=== PATIENT | male | born 1990 | race Caucasian/White ===

== ENCOUNTER 2024-02-03 09:43 | Emergency (ER) | payer OTHER, SELFPAY ==
--- NOTE | ~2024-02-03 | XR_ITS ---
EXAMINATION: XR chest 1V portable DATE: 02/03/2024 10:21 INDICATION: Allergic reaction and edema TECHNIQUE: frontal view of the chest was obtained. COMPARISON: None FINDINGS: Opacities at the left lower lung zone silhouetting the left hemidiaphragm. Cardiomegaly with pulmonar y vascular congestion but without marilynn pulmonary edema. No or pneumothorax right-sided pleural effus ion. IMPRESSION: 1. Cardiomegaly with pulmonary vascular congestion but without marilynn pulmonary edema. 2. Opacities at the left lower lung zone which could represent atelectasis, pneumonia, small left ple ural effusion or some combination thereof. Reviewed, dictated and finalized at location A. IMPRESSION: 1. Cardiomegaly with pulmonary vascular congestion but without marilynn pulmonary edema. 2. Opacities at the left lower lung zone which could represent atelectasis, pne umonia, small left pleural effusion or some combination thereof.
[2024-02-03 10:00] VITALS: BP 149/113; PULSE 102; RESP 18; O2SAT 100
--- NOTE | 2024-02-03 10:02 | ECG_ITS ---
Test Date: 2024-02-03 09:56:54 Measurements Intervals [place] Rate: 97 P: 64 [place]: 140 QRS: 108 QRSD: 98 T: -12 QT: 325 QTc: 414 Interpretive Statements SINUS RHYTHM MARKED RIGHT AXIS DEVIATION [QRS AXIS > 100] LOW QRS VOLTAGE IN PRECORDIAL LEADS [QRS DEFLECTION < 1.0 mV IN CHEST LEADS] INCOMPLETE RIGHT BUNDLE BRANCH BLOCK [90+ ms QRS DURATION, TERMINAL R IN V1/V2, 40+ ms S IN I/aVL/V4/V5/V6] NONSPECIFIC ST SEGMENT ABNORMALITY ABNORMAL ECG No previous ECG available for comparison Electronically Signed On 02-04-2024 07:11:25 CDT by Primo Mcnally M.D.
--- NOTE | 2024-02-03 10:02 | ED.ALLEREA ---
HPI - Allergic Reaction General Chief complaint: Allergic Reaction Stated complaint: facial swelling-allergic reaction Time Seen by Provider: 02/03/24 10:01 Source: patient, EMS and police History of Present Illness HPI narrative: Patient presents with concern for allergic reaction. He is on an unknown antibiotic. He presents from custodial /residential. He has been having lower extremity edema and scrotal swelling. He was also having concerns for dental infection And believes this is why the antibiotic was prescribed. patient denies being on an HUDSON-inhibitor when provided with a list of multiple names of such medications. Related Data Allergies Allergy/AdvReac Type Severity Reaction Status Date / Time clindamycin Allergy Intermediate edema Uncoded 02/03/24 10:14 [facility] Past Medical History Medical History (Updated 02/04/24 @ 00:01 by Dena Peng) Dental infection Scrotal edema Social History Social History (Updated 02/03/24 @ 10:34 by Gabby Lawler MD) Living arrangements: incarcerated Exam Narrative: GENERAL: Well-appearing, well-nourished, and in no acute distress. HEAD: Normocephalic, atraumatic. EYES: Non injected, non icteric. significant bilateral periorbital swelling; eyes closed at baseline but able to open both. ENT: Nares clear, no rhinorrhea or epistaxis. Difficult to fully evaluate posterior oropharynx but otherwise without edema or angioedema. Uvula midline. Poor dentition. Small lesion on tongue. NECK: Supple. CHEST: Speaking in full sentences. No respiratory distress. lungs clear to auscultation bilaterally without appreciable bronchospasm or wheezes. HEART: Regular rate and rhythm. ABDOMEN: Soft, Abdominal edema and erythema but without warmth or tenderness. EXTREMITIES: Normal range of motion. 3+ bilateral pitting lower extremity edema : scant scrotal edema; normal male uncircumcised genitalia. SKIN: Warm, dry. Diffuse Rash but without urticaria. . NEURO: No focal deficits. Alert and oriented x3. PSYCH: Normal mood and affect. Course Vital Signs Vital signs: Vital Signs Pulse Rate 102 H 02/03/24 10:00 Respiratory Rate 18 02/03/24 10:00 Blood Pressure 149/113 H 02/03/24 10:00 Pulse Oximetry 100 02/03/24 10:00 Oxygen Delivery Room Air 02/03/24 10:00 Temperature 98.3 F 02/03/24 13:04 Pulse Rate 95 02/03/24 13:04 Respiratory Rate 19 02/03/24 13:04 Blood Pressure 141/89 H 02/03/24 13:04 Pulse Oximetry 100 02/03/24 13:04 Oxygen Delivery Room Air 02/03/24 10:06 MDM - Allergic Reaction MDM Narrative Medical decision making narrative: Patient presents with concern for allergic reaction. He has periorbital edema and a diffuse rash. patient has been taking an antibiotic, believed to be for a dental infection. It is determined that this was clindamycin. In the emergency department he is afebrile with signs that show mild tachycardia and hypertension the narrow pulse pressure. Patient is otherwise not tachypneic is normoxic. Social determinant of health affecting care: patient currently incarcerated Patient given additional diphenhydramine Clindamycin is added to the patient's allergy list. There are also minimal ST depressions patient's EKG with no prior for comparison. Will resuscitate/ stabilize patient and re-evaluate. patient is reassessed. His swelling has started to improve and his eyes are now open although he does still have some periorbital edema. Patient was educated about anaphylaxis and prescribed 2 epinephrine autoinjector time of discharge. Patient also provided with outpatient steroid (40mg/day 5 days; no taper required) and Rx for diphenhydramine. COnfirmed multiple times that if medications are prescribed [facility]. Given it appears he has a degree of heart failure /edema, will include a daily dose of Lasix and I strongly encouraged follow up while incarcerated
[2024-02-03 10:12] VITALS: TEMP 36.6
[2024-02-03] MEDS: diphenhydrAMINE HCl INJ 50 MG/ML VIAL 25 MG IV PUSH (10:13)
[2024-02-03] MEDS: predniSONE 20 MG TABLET 60 MG PO (10:13)
[2024-02-03] MEDS: SODIUM CHLORIDE 0.9% IV 1,000 ML 999 ML IV CONT (10:14)
[2024-02-03 10:28] LABS: Basophils Percent Auto 0.2 % (0.2-1.2); Eosinophils Absolute Auto 0.1 K/mm3 (0-0.3); Hematocrit 39.9 % (42.0-52.0); Hemoglobin 12.9 g/dL (14.0-18.0); Immature Granulocyte Absolute 0.01 K/mm3 (0.00-0.031); Immature Granulocyte Percent A 0.2 % (0-0.5); Lymphocytes Absolute Auto 0.99 K/mm3 (0.9-3.2); Lymphocytes Percent Auto 19.3 % (18.3-44.2); Mean Corpuscular HGB Conc 32.3 g/dl (32-36); Mean Corpuscular Hemoglobin 27.2 pg (26-34); Mean Corpuscular Volume 84.2 fl (80-100); Mean Platelet Volume 11.7 fl (7.4-10.4); Monocytes Absolute Auto 0.6 K/mm3 (0.1-0.6); Monocytes Percent Auto 10.9 % (2.6-8.5); Neutrophils Absolute Auto 3.5 K/mm3 (1.3-6.7); Neutrophils Percent Auto 68.4 % (45.5-73.1); Platelet Count Result 183 k/mm3 (150-375); Red Blood Count 4.74 M/mm3 (4.6-6.20); Red Cell Distribution Width 17.2 % (11.5-14.5); White Blood Count 5.1 K/mm3 (4.5-10.0)
[2024-02-03 10:37] LABS: Alanine Aminotransferase 30 U/L (6-50); Albumin Level 3.4 g/dL (3.5-5.1); Alkaline Phosphatase 83 U/L (38-126); Anion Gap 7 mmol/L (4-12); Aspartate Amino Transferase 39 U/L (17-59); Bilirubin,Total 1.1 mg/dL (0.2-1.3); Blood Urea Nitrogen 19 mg/dL (9-20); Calcium 8.7 mg/dL (8.4-10.2); Carbon Dioxide 24 mmol/L (22-30); Chloride 108 mmol/L (98-107); Estimated CRCL calculation 124 ml/min; Estimated Glomerular Filt Rate > 60; Glucose 99 mg/dL (65-110); Potassium 4.2 mmol/L (3.4-5.0); Sodium 139 mmol/L (137-145)
[2024-02-03 10:46] LABS: NT Pro B Type Natriuretic Pept 2540 pg/mL (19.9-100)
[2024-02-03 11:17] VITALS: BP 126/92; PULSE 92; RESP 15; O2SAT 100
[2024-02-03] MEDS: FUROSEMIDE INJ 40 MG/4 ML VIAL IV PUSH (11:35)
--- NOTE | 2024-02-03 11:35 | ECG_ITS ---
Test Date: 2024-02-03 11:51:46 Measurements Intervals [place] Rate: 70 P: 37 [place]: 152 QRS: 108 QRSD: 89 T: -24 QT: 354 QTc: 382 Interpretive Statements SINUS RHYTHM WITH SINUS ARRHYTHMIA POSSIBLE LEFT ATRIAL ENLARGEMENT [-0.1mV P WAVE IN V1/V2] MARKED RIGHT AXIS DEVIATION [QRS AXIS > 100] INCOMPLETE RIGHT BUNDLE BRANCH BLOCK LOW QRS VOLTAGE ABNORMAL ECG COMPARED TO ELECTROCARDIOGRAM EARLIER TODAY, NO DIFFERENCE Electronically Signed On 02-04-2024 07:14:10 CDT by Primo Mcnally M.D.
[2024-02-03 11:47] VITALS: BP 134/107; PULSE 70; RESP 13; O2SAT 100
[2024-02-03 12:08] LABS: Appearance Urine Clear (Clear); Bilirubin Urine Negative (Negative); Blood Urine Negative (Negative); Color Urine Yellow (Yellow); Glucose Urine UA Negative (Negative); Ketones Urine Negative (Negative); Leukocyte Esterase Ur Negative LEU/UL (Negative); Nitrate Urine Negative (Negative); Protein Urine Negative (Negative); Specific Grav Ur 1.006 (1.001-1.035); Urobilinogen Urine 0.2 mg/dL (<2.0)
[2024-02-03 12:12] LABS: Add Urine Microscopic? NO
[2024-02-03 13:04] VITALS: BP 141/89; PULSE 95; RESP 19; TEMP 36.8; O2SAT 100
== END 2024-02-03 13:05 ==
PROVIDERS: Emergency Provider Student in an Organized Health Care Education/Training Program
DX: T78.3XXA Angioneurotic edema, initial encounter (principal); T36.8X5A Adverse effect of other systemic antibiotics, initial encounter; D64.9 Anemia, unspecified; I45.10 Unspecified right bundle-branch block; I51.7 Cardiomegaly
CPT/HCPCS: 36415; 71045; 80053; 81003; 83880; 85025; 93005; 96361; 96374; 96375; 99284; J1200; J1940; J7030; J7512

== ENCOUNTER 2025-08-11 23:13 | Emergency (ER) | payer OTHER, SELFPAY ==
--- NOTE | ~2025-08-11 | US_ITS ---
EXAMINATION: US venous doppler LE RT DATE: 08/12/2025 07:42 INDICATION: Right lower limb pain and swelling. TECHNIQUE: Grayscale ultrasound images without and with compression and Doppler ultrasound images of the right lower extremity veins were obtained. COMPARISON: None. FINDINGS: The visualized portions of right common femoral vein, profunda (deep) femoral vein, femoral vein, popliteal vein, peroneal veins, posterior tibial veins, and greater saphenous vein outflow are patent. IMPRESSION: 1. No deep venous thrombosis. Reviewed, dictated and finalized at location E. OPERATIONS MANAGER
[2025-08-11 23:25] VITALS: BP 135/84; PULSE 96; RESP 18; TEMP 36.9; O2SAT 100
[2025-08-12 01:16] VITALS: BP 127/90; PULSE 99; RESP 20; TEMP 36.4; O2SAT 96
--- NOTE | 2025-08-12 04:16 | ED.GENADULT ---
HPI - General Adult General Chief complaint: Unspecified Stated complaint: leg swelling Time Seen by Provider: 08/12/25 04:06 History of Present Illness HPI narrative: 34-year-old male with no known pertinent past medical history presenting to the emergency department with lower extremity swelling on the right lower extremity for about a week. Patient states that he went to another hospital and they were going to give him Lasix but did not end up getting this medication. States he thinks he may have been told he had heart failure at one point but is not sure of this. For last week he has been having right lower extremity pain and swelling with fluid retention and redness. Denies any traumatic injuries. No recent surgeries. No mobilization for prolonged periods of time or any history of thromboembolic disease/ DVT. Denies any other complaints at this time. Was otherwise in his normal state of health. Related Data Allergies Allergy/AdvReac Type Severity Reaction Status Date / Time No Known Allergies Allergy Verified 08/11/25 23:28 Review of Systems Review of Systems: As reviewed above in HPI All systems reviewed & are unremarkable except as noted in HPI and below PMFSH Past Medical History Medical History Dental infection Scrotal edema Social History Social History Living arrangements: incarcerated Exam Narrative: GENERAL: [Well-appearing, well-nourished, and in no acute distress.] HEAD: [Normocephalic, atraumatic.] EYES: [PERRLA and EOMI.] ENT: Nares clear, no rhinorrhea or epistaxis. Mucous membranes moist. NECK: Supple. CHEST: [Clear to auscultation. No respiratory distress.] HEART: [Regular rate and rhythm]. No murmur heard. [Normal peripheral pulses.] ABDOMEN: [Soft, nondistended], [nontender], [No rigidity or guarding] EXTREMITIES: Normal range of motion. Ambulatory without difficulty. Right lower extremity with circumferential swelling from the knee down to the ankle with redness and pitting edema. Some dry skin on the anterior surface but no deformity. Palpable pulses throughout. Able to plantar and dorsiflex and ambulate without difficulty. Pain with palpation. Contralateral lower extremity with no findings of concern. SKIN: Warm, dry, no rash. NEURO: [No focal deficits]. Alert and oriented [x3.] PSYCH: [Normal mood and affect.] Course Vital Signs Vital signs: Vital Signs Temperature 36.9 C 08/11/25 23:25 Pulse Rate 96 08/11/25 23:25 Respiratory Rate 18 08/11/25 23:25 Blood Pressure 135/84 08/11/25 23:25 Pulse Oximetry 100 08/11/25 23:25 Oxygen Delivery Room Air 08/11/25 23:25 Temperature 36.4 C 08/12/25 01:16 Pulse Rate 103 H 08/12/25 07:30 Respiratory Rate 16 08/12/25 07:30 Blood Pressure 127/108 H 08/12/25 07:30 Pulse Oximetry 93 08/12/25 07:30 Oxygen Delivery Room Air 08/11/25 23:25 MDM MDM Narrative Medical decision making narrative: 34-year-old male with no known pertinent past medical history presenting to the emergency department with lower extremity swelling on the right lower extremity for about a week. Patient states that he went to another hospital and they were going to give him Lasix but did not end up getting this medication. States he thinks he may have been told he had heart failure at one point but is not sure of this. For last week he has been having right lower extremity pain and swelling with fluid retention and redness. Denies any traumatic injuries. No recent surgeries. No mobilization for prolonged periods of time or any history of thromboembolic disease/ DVT. Denies any other complaints at this time. Was otherwise in his normal state of health. Normal range of motion. Ambulatory without difficulty. Right lower extremity with circumferential swelling from the knee down to the ankle with redness and pitting edema. Some dry skin on the anterior surface but no deformity. Palpable pulses throughout. Able to plantar and dorsiflex and ambulate without difficulty. Pain with palpation. Contralateral lower extremity with no findings of concern. Hemodynamically stable. No cardiac or respiratory complaints. Could very well be a DVT versus cellulitis versus less likely fluid overload. Laboratory studies were obtained. Will obtain a Doppler ultrasound for the morning to rule out DVT and if negative will likely start him on Keflex for supposed cellulitis. Patient care signed over to morning physician pending completion of workup and likely discharge with medications. Doppler ultrasound was negative. Laboratory studies show mild elevated BNP. Symptoms consistent with cellulitis and mild fluid overload. He was given a prescription for Keflex and Lasix and safe for discharge with PCP follow-up and return precautions. Differential Diagnosis Differential Diagnosis: Could very well be a DVT versus cellulitis versus less likely fluid overload. Lab Data MDM Lab Attestation statement: I personally reviewed the patient's lab results. 08/12/25 04:28 08/12/25 04:28 Labs: Lab Results 08/12/25 Range/Units 04:28 WBC 10.2 H (4.5-10.0) K/mm3 RBC 4.40 L (4.6-6.20) M/mm3 Hgb 12.1 L (14.0-18.0) g/dL Hct 37.8 L (42.0-52.0) % MCV 85.9 (80-100) fl MCH 27.5 (26-34) pg MCHC 32.0 (32-36) g/dl RDW 16.8 H (11.5-14.5) % Plt Count 244 (150-375) k/mm3 MPV 10.9 H (7.4-10.4) fl Immature Gran % (Auto) 1.1 H (0-0.5) % Neut % (Auto) 71.8 (45.5-73.1) % Lymph % (Auto) 14.1 L (18.3-44.2) % [place] % (Auto) 11.1 H (2.6-8.5) % Eos % (Auto) 1.6 (0-4.4) % Baso % (Auto) 0.3 (0.2-1.2) % Lymph # (Auto) 1.44 (0.9-3.2) K/mm3 [place] # (Auto) 1.1 H (0.1-0.6) K/mm3 Eos # (Auto) 0.2 (0-0.3) K/mm3 Baso # (Auto) 0.0 (0.0-0.1) K/mm3 Abs Immat Gran (auto) 0.11 H (0.00-0.031) K/mm3 Absolute Neuts (auto) 7.3 H (1.3-6.7) K/mm3 Absolute Nucleated RBC 0.000 (0.0-0.012) K/mm3 Nucleated RBC % 0.0 (0.0-0.2) % Sodium 135 L (137-145) mmol/L Potassium 4.6 (3.4-5.0) mmol/L Chloride 100 (98-107) mmol/L Carbon Dioxide 29 (22-30) mmol/L Anion Gap 6 (4-12) mmol/L BUN 15 (9-20) mg/dL Creatinine 0.92 (0.7-1.3) mg/dL Estim Creat Clear Calc 115 ml/min Estimated GFR > 60 (59 - ) Glucose 95 (65-110) mg/dL Calcium 8.5 (8.4-10.2) mg/dL Total Bilirubin 1.1 (0.2-1.3) mg/dL AST 34 (17-59) U/L ALT 31 (6-50) U/L Alkaline Phosphatase 117 (38-126) U/L NT-Pro-B Natriuret Pep 4960 H (19.9-100) pg/mL Total Protein 7.1 (6.3-8.2) g/dL Albumin 3.1 L (3.5-5.1) g/dL Imaging Data Attestation: I personally reviewed and interpreted this imaging study as follows: Radiologist's impression: ITS Impressions Venous Doppler Study 08/12/25 07:51 IMPRESSION: 1. No deep venous thrombosis. Discharge Plan Discharge Clinical Impression: Cellulitis, Elevated brain natriuretic peptide (BNP) level, Leg swelling Patient Disposition: Home Condition: Stable Instructions: Antibiotic Form, Cellulitis (ED) Additional Instructions: DVT ultrasound was negative. Symptoms consistent with cellulitis. He do have mildly elevated BNP levels which could be a sign of fluid overload. Will give you a prescription for Lasix and antibiotics. Follow-up with regular primary care provider. Return with any emergent concerns. Patient Language: [place] Prescriptions: New cephalexin 500 mg capsule 500 mg PO Q12H 5 Days Qty: 10 0RF furosemide [Lasix] 20 mg tablet 20 mg PO DAILY Qty: 30 0RF No Action amoxicillin-pot clavulanate 875-125 mg tablet 1 tablet PO Q12H Qty: 14 0RF diphenhydramine HCl [Allergy (diphenhydramine)] 25 mg capsule 25 mg PO TID PRN (Reason: allergy symptoms) Qty: 20 0RF prednisone 20 mg tablet 40 mg PO DAILY 5 Days Qty: 10 0RF furosemide [Lasix] 20 mg tablet 20 mg PO DAILY Qty: 14 0RF epinephrine 0.3 mg/0.3 mL auto-injector 0.3 mg IM Q4H PRN (Reason: anaphylaxis) Qty: 2 0RF Follow-up/Referrals: PHYSICIAN,SECURITY INCIDENT RESPONSE ENGINEER [Primary Care Provider, Internal Medicine] Time of Disposition: 07:56
[2025-08-12 04:33] VITALS: O2SAT 93
[2025-08-12 04:33] LABS: Hematocrit 37.8 % (42.0-52.0); Hemoglobin 12.1 g/dL (14.0-18.0); Immature Granulocyte Percent A 1.1 % (0-0.5); Lymphocytes Absolute Auto 1.44 K/mm3 (0.9-3.2); Mean Corpuscular HGB Conc 32.0 g/dl (32-36); Mean Corpuscular Hemoglobin 27.5 pg (26-34); Mean Corpuscular Volume 85.9 fl (80-100); Nucleated Red Blood Cells Absolute Auto 0.000 K/mm3 (0.0-0.012); Nucleated Red Blood Cells Perc 0.0 % (0.0-0.2); Platelet Count Result 244 k/mm3 (150-375); Red Blood Count 4.40 M/mm3 (4.6-6.20); White Blood Count 10.2 K/mm3 (4.5-10.0)
[2025-08-12 04:46] VITALS: BP 118/75; PULSE 95; RESP 14; O2SAT 95
[2025-08-12 04:49] VITALS: O2SAT 88
[2025-08-12 04:58] LABS: Alanine Aminotransferase 31 U/L (6-50); Albumin Level 3.1 g/dL (3.5-5.1); Alkaline Phosphatase 117 U/L (38-126); Anion Gap 6 mmol/L (4-12); Aspartate Amino Transferase 34 U/L (17-59); Bilirubin,Total 1.1 mg/dL (0.2-1.3); Blood Urea Nitrogen 15 mg/dL (9-20); Calcium 8.5 mg/dL (8.4-10.2); Carbon Dioxide 29 mmol/L (22-30); Chloride 100 mmol/L (98-107); Estimated CRCL calculation 115 ml/min; Estimated Glomerular Filt Rate > 60; Glucose 95 mg/dL (65-110); Potassium 4.6 mmol/L (3.4-5.0); Sodium 135 mmol/L (137-145); Total Protein 7.1 g/dL (6.3-8.2)
[2025-08-12 05:02] LABS: NT Pro B Type Natriuretic Pept 4960 pg/mL (19.9-100)
[2025-08-12 06:39] VITALS: BP 134/94; PULSE 79; RESP 14; O2SAT 97
--- NOTE | 2025-08-12 07:23 | PC.NURSE ---
Bedside report given to NIKOLAI Alonso.
[2025-08-12 07:30] VITALS: BP 127/108; PULSE 103; RESP 16; O2SAT 93
[2025-08-12] MEDS: CEPHALEXIN 500 MG CAPSULE PO (08:15)
== END 2025-08-12 08:40 | disposition home or self-care (01) ==
PROVIDERS: Emergency Provider Student in an Organized Health Care Education/Training Program
DX: L03.115 Cellulitis of right lower limb (principal); R79.89 Other specified abnormal findings of blood chemistry
CPT/HCPCS: 36415; 80053; 83880; 85025; 93971; 99283; 99284; A9270